=== PATIENT | female | born 1970 | race Caucasian/White ===

== ENCOUNTER → 2017-05-05 | Outpatient (CLI) | payer BC ==
--- NOTE | 2017-05-05 09:25 | MM ---
Reason for exam: follow-up at short interval from prior study. Last mammogram was performed 7 months ago. History: Family history of breast cancer in maternal aunt at age 50 and breast cancer in maternal grandmother. Benign US biopsy breast VAD LT of the left breast, October 10, 2016. Took hormonal contraceptives for 2 years beginning at age 19. Physical Findings: Nurse did not find any significant physical abnormalities on exam. MG 3D Diag Mammo W/Cad LT CC and MLO view(s) were taken of the left breast. Prior study comparison: October 10, 2016, left breast MG diagnostic mammo LT wo CAD. October 02, 2016, left breast MG 3d work up w/cad LT. There are scattered fibroglandular densities. No significant new findings when compared with previous films. These results were verbally communicated with the patient and result sheet given to the patient on 05/05/17. ASSESSMENT: Benign, BI-RAD 2 RECOMMENDATION: Return to routine screening mammogram schedule for both breasts. Back on schedule.
--- NOTE | 2017-05-05 09:26 | USB ---
Reason for exam: follow-up at short interval from prior study. History: Family history of breast cancer in maternal aunt at age 50 and breast cancer in maternal grandmother. Benign US biopsy breast VAD LT of the left breast, October 10, 2016. Took hormonal contraceptives for 2 years beginning at age 19. US Breast LT Left breast ultrasound includes all four quadrants, the retroareolar region and axilla. Finding demonstrates a 6 x 5 x 6mm irregular, solid, hypoechoic lesion with clip visible at 10 o'clock. These results were verbally communicated with the patient and result sheet given to the patient on 05/05/17. ASSESSMENT: Benign, BI-RAD 2 RECOMMENDATION: Return to routine screening mammogram schedule for both breasts. Back on schedule.
== END | disposition home or self-care (01) ==
LOC: RADMAMWWP 07:38
PROVIDERS: ATTEND Internal Medicine Infectious Disease
DX: N64.89 Other specified disorders of breast (principal); R21 Rash and other nonspecific skin eruption
CPT/HCPCS: 76641; G0206; G0279

== ENCOUNTER → 2017-12-11 | Outpatient (CLI) | payer BC ==
--- NOTE | 2017-12-11 11:34 | MM ---
Reason for exam: screening (asymptomatic). Last mammogram was performed 7 months ago. History: Family history of breast cancer in maternal aunt at age 50 and breast cancer in maternal grandmother. Benign US biopsy breast VAD LT of the left breast, October 10, 2016. Took hormonal contraceptives for 2 years beginning at age 19. Physical Findings: A clinical breast exam by your physician is recommended on an annual basis and results should be correlated with mammographic findings. MG 3D Screening Mammo W/Cad Bilateral CC and MLO view(s) were taken. Prior study comparison: May 05, 2017, left breast MG 3d diag mammo w/cad LT. October 10, 2016, left breast MG diagnostic mammo LT wo CAD. No suspicious abnormality. Left central inner ribbon shaped biopsy marker. No significant changes when compared with prior studies. ASSESSMENT: Negative, BI-RAD 1 RECOMMENDATION: Routine screening mammogram of both breasts in 1 year.
== END | disposition home or self-care (01) ==
LOC: RADMAMWWP 07:05
PROVIDERS: ATTEND Obstetrics & Gynecology
DX: Z12.31 Encounter for screening mammogram for malignant neoplasm of breast (principal); Z80.3 Family history of malignant neoplasm of breast
CPT/HCPCS: 77063; 77067

== ENCOUNTER → 2019-02-09 | Outpatient (CLI) | payer BC ==
--- NOTE | 2019-02-10 10:16 | MM ---
Reason for exam: screening (asymptomatic). Last mammogram was performed 1 year and 2 months ago. History: Family history of breast cancer in maternal aunt at age 50 and breast cancer in maternal grandmother. Implants in both breasts, December 2017. Benign US biopsy breast VAD LT of the left breast, October 10, 2016. Took hormonal contraceptives for 2 years beginning at age 19. Physical Findings: A clinical breast exam by your physician is recommended on an annual basis and results should be correlated with mammographic findings. MG 3D Screen Mammo Imp/Cad Bilateral CC, MLO, and ID view(s) were taken. Prior study comparison: December 11, 2017, bilateral MG 3d screening mammo w/cad. May 05, 2017, left breast MG 3d diag mammo w/cad LT. The breast tissue is heterogeneously dense. This may lower the sensitivity of mammography. No suspicious calcifications are seen. Previous mammotome biopsy in the left breast. Bilateral implants are intact. No significant changes when compared with prior studies. ASSESSMENT: Benign, BI-RAD 2 RECOMMENDATION: Routine screening mammogram of both breasts in 1 year.
== END | disposition home or self-care (01) ==
LOC: RADMAMWWP 07:01
PROVIDERS: ATTEND Obstetrics & Gynecology
DX: Z12.31 Encounter for screening mammogram for malignant neoplasm of breast (principal); Z98.82 Breast implant status
CPT/HCPCS: 77063; 77067

== ENCOUNTER → 2020-06-01 | Outpatient (CLI) | payer BC ==
--- NOTE | 2020-06-04 12:00 | MM ---
Reason for exam: screening (asymptomatic). Last mammogram was performed 1 year and 4 months ago. History: Family history of breast cancer in maternal aunt at age 50 and breast cancer in maternal grandmother. Implants in both breasts, December 2017. Benign US biopsy breast VAD LT of the left breast, October 10, 2016. Took hormonal contraceptives for 2 years beginning at age 19. Physical Findings: A clinical breast exam by your physician is recommended on an annual basis and results should be correlated with mammographic findings. MG 3D Screen Mammo Imp/Cad Bilateral CC, MLO, and ID view(s) were taken. Prior study comparison: February 09, 2019, bilateral MG 3d screen mammo imp/cad. December 11, 2017, bilateral MG 3d screening mammo w/cad. September 26, 2016, bilateral MG 3d screening mammo w/cad. There are scattered fibroglandular densities. Previous mammotome biopsy in the left breast. Retropectoral silicone implants. Medial asymmetric density right CC view does not clearly persist on 3D images. Precautionary 6 month follow up recommended. ASSESSMENT: Probably benign, BI-RAD 3 RECOMMENDATION: Follow-up diagnostic mammogram of the right breast in 6 months.
== END | disposition home or self-care (01) ==
LOC: RADMAMWWP 14:37
PROVIDERS: ATTEND Obstetrics & Gynecology
DX: Z12.31 Encounter for screening mammogram for malignant neoplasm of breast (principal)
CPT/HCPCS: 77063; 77067

== ENCOUNTER 2020-08-03 09:45 | Day surgery (SDC) | payer BC ==
[2020-07-25 15:08] VITALS: BMI 31.8
[~2020-08-03 09:45] MED LIST: LACTATED RINGERS 1,000 ML IV SCH
[2020-08-03 10:11] VITALS: RESP 16; TEMP 97.1
[2020-08-03] MEDS ORDERED: MIDAZOLAM 2 MG/2 ML VIAL IV ONE (11:29)
[2020-08-03] MEDS ORDERED: MIDAZOLAM 2 MG/2 ML VIAL ONE (11:45)
[2020-08-03] MEDS ORDERED: PROPOFOL 10 MG/ML 20 ML VIAL IV ONE (11:45)
--- NOTE | 2020-08-03 12:05 | P.PCN ---
Date of Procedure: 08/03/20 Procedure(s) Performed: BRIEF HISTORY: Patient is a 50-year-old pleasant white female scheduled for an elective colonoscopy as a part of evaluation of chronic diarrhea for the last several months duration. PROCEDURE PERFORMED: Colonoscopy. PREOPERATIVE DIAGNOSIS: Chronic diarrhea. IV sedation per Anesthesia. PROCEDURE: After informed consent was obtained, the patient, was brought into the endoscopy unit. IV sedation was administered by Anesthesia under continuous monitoring. Digital rectal examination was normal. Initially the Olympus CF-160 flexible video colonoscope was then inserted in the rectum, gradually advanced into the cecum without any difficulty. Careful examination was performed as the scope was gradually being withdrawn. Ileocecal valve and the appendiceal orifice were visualized and appeared normal. Prep was excellent. Mucosa of the cecum, ascending colon, transverse colon, descending colon, sigmoid colon, and rectum appeared normal. Retroflexion was performed in the rectum and no lesions were seen. The patient tolerated the procedure well. IMPRESSION: Normal-appearing colon from rectum to cecum with no evidence of colitis or colorectal. RECOMMENDATIONS: Findings of this examination were discussed with the patient as well as a family. She was advised to have a repeat screening colonoscopy in 10 years..
[2020-08-03 12:29] VITALS: BP 133/83; PULSE 82
== END 2020-08-03 12:43 | disposition home or self-care (01) ==
LOC: ORWHC2ENDO 09:45
PROVIDERS: ATTEND Internal Medicine Gastroenterology
DX: K52.9 Noninfective gastroenteritis and colitis, unspecified (principal); Z90.710 Acquired absence of both cervix and uterus; Z90.49 Acquired absence of other specified parts of digestive tract; Z98.890 Other specified postprocedural states; Z88.2 Allergy status to sulfonamides
CPT/HCPCS: 45378; J2250; J2704

== ENCOUNTER → 2020-12-25 | Outpatient (CLI) | payer BC ==
--- NOTE | 2020-12-25 09:19 | MM ---
Reason for exam: follow-up at short interval from prior study. Last mammogram was performed 7 months ago. History: Family history of breast cancer in maternal aunt at age 50 and breast cancer in maternal grandmother. Implants in both breasts, December 2017. Benign US biopsy breast VAD LT of the left breast, October 10, 2016. Took hormonal contraceptives for 2 years beginning at age 19. Physical Findings: Nurse did not find any significant physical abnormalities on exam. MG 3D Work Up W/Cad W/Imp RT Spot compression CC, spot compression MLO, and ID view(s) were taken of the right breast. Prior study comparison: June 01, 2020, bilateral MG 3d screen mammo imp/cad. February 09, 2019, bilateral MG 3d screen mammo imp/cad. The breast tissue is heterogeneously dense. This may lower the sensitivity of mammography. There is no new dominant lesion. Asymmetric breast tissue is stable. Right subpectoral implant. These results were verbally communicated with the patient and result sheet given to the patient on 12/25/20. ASSESSMENT: Benign, BI-RAD 2 RECOMMENDATION: Return to routine screening mammogram schedule for both breasts. Back on schedule for May 2021.
== END ==
LOC: RADMAMWWP 07:41
PROVIDERS: ATTEND Obstetrics & Gynecology
DX: R92.8 Other abnormal and inconclusive findings on diagnostic imaging of breast (principal)
CPT/HCPCS: 77061; 77065

== ENCOUNTER → 2021-08-23 | Outpatient (CLI) | payer BC ==
--- NOTE | 2021-08-27 11:10 | MM ---
Reason for exam: screening (asymptomatic). Last mammogram was performed 8 months ago. History: Family history of breast cancer in maternal aunt at age 50 and breast cancer in maternal grandmother. Implants in both breasts, December 2017. Benign US biopsy breast VAD LT of the left breast, October 10, 2016. Took hormonal contraceptives for 2 years beginning at age 19. Physical Findings: A clinical breast exam by your physician is recommended on an annual basis and results should be correlated with mammographic findings. MG 3D Screen Mammo Imp/Cad Bilateral CC and MLO view(s) were taken. Prior study comparison: December 25, 2020, right breast MG 3d work up w/cad w/imp RT. There are scattered fibroglandular densities. Previous mammotome biopsy in the left breast. Bilateral breast prothesis. No significant changes when compared with prior studies. ASSESSMENT: Benign, BI-RAD 2 RECOMMENDATION: Routine screening mammogram of both breasts in 1 year.
== END | disposition home or self-care (01) ==
LOC: RADMAMWWP 07:25
PROVIDERS: ATTEND Obstetrics & Gynecology
DX: Z12.31 Encounter for screening mammogram for malignant neoplasm of breast (principal); Z80.3 Family history of malignant neoplasm of breast
CPT/HCPCS: 77063; 77067

== ENCOUNTER 2021-12-03 18:12 | Emergency (ER) | payer BC ==
[2021-12-03 19:39] VITALS: BP 146/82; PULSE 74; RESP 18; TEMP 99.2
[2021-12-03] MEDS ORDERED: APIXABAN 5 MG TAB PO STA (19:56)
--- NOTE | 2021-12-03 20:07 | ED ---
General Adult HPI - General Chief complaint: Extremity Problem,Nontraumatic Stated complaint: +DVT, sent from [facility] Time Seen by Provider: 12/03/21 19:35 Source: patient, family, RN notes reviewed, old records reviewed Mode of arrival: wheelchair Limitations: no limitations - History of Present Illness Initial comments: This is a 51-year-old female who had knee surgery on the right knee last Thursday. Patient stated she started her some swelling in the right calf and some tenderness in the right calf area. Patient decided to call her doctor in the center and to get an ultrasound showed a DVT. Patient denies any difficulty breathing or chest pain. Patient denies any palpitations. Patient denies any recent fever chills or cough. Patient denies any previous history of clots. - Related Data Previous Rx's Medication Instructions Recorded Apixaban [Eliquis Starter Pack 5 - 10 mg PO DIRECTED 30 Days 12/03/21 (for VTE)] #1 each Allergies Allergy/AdvReac Type Severity Reaction Status Date / Time Sulfa (Sulfonamide Allergy eye cream Verified 12/03/21 19:39 Antibiotics) caused red streak on face suture AdvReac caused Verified 12/03/21 19:39 infection and wound dehiscence Review of Systems ROS Statement: Those systems with pertinent positive or pertinent negative responses have been documented in the HPI. ROS Other: All systems not noted in ROS Statement are negative. Past Medical History Past Medical History: No Reported History Additional Past Medical History / Comment(s): no problems-just having screening done History of Any Multi-Drug Resistant Organisms: None Reported Past Surgical History: Appendectomy, Breast Surgery, Cholecystectomy, Hysterectomy, Orthopedic Surgery, Tonsillectomy Additional Past Surgical History / Comment(s): bilat breast implants Past Anesthesia/Blood Transfusion Reactions: Postoperative Nausea & Vomiting (PONV) Past Psychological History: No Psychological Hx Reported Smoking Status: Former smoker Past Alcohol Use History: Occasional Past Drug Use History: None Reported - Past Family History Mother Family Medical History: No Reported History General Exam - General Exam Comments Initial Comments: GENERAL: Patient is well-developed and well-nourished. Patient is nontoxic and well- hydrated and is in no acute distress. ENT: Neck is soft and supple. No significant lymphadenopathy is noted. Oropharynx is clear. Moist mucous membranes. Neck has full range of motion without eliciting any pain. EYES: The sclera were anicteric and conjunctiva were pink and moist. Extraocular movements were intact and pupils were equal round and reactive to light. Eyelids were unremarkable. PULMONARY: Unlabored respirations. Good breath sounds bilaterally. No audible rales rhonchi or wheezing was noted. CARDIOVASCULAR: There is a regular rate and rhythm without any murmurs gallops or rubs. SKIN: Skin is clear with no lesions or rashes and otherwise unremarkable. NEUROLOGIC: Patient is alert and oriented x3. Cranial nerves II through XII are grossly intact. Motor and sensory are also intact. Normal speech, volume and content. Symmetrical smile. MUSCULOSKELETAL: Normal extremities with adequate strength and full range of motion. Right calf is swollen and tender to palpation. The incision sites look clean no redness no signs of infection LYMPHATICS: No significant lymphadenopathy is noted PSYCHIATRIC: Patient is mildly anxious Limitations: no limitations Course Vital Signs 12/03/21 19:36 Temperature 99.2 F Pulse Rate 74 Respiratory 18 Rate Blood Pressure 146/82 O2 Sat by Pulse 99 Oximetry Medical Decision Making - Medical Decision Making I reviewed the ultrasound results patient does have a DVT of the right calf. Patient received eliquis in the emergency department. EKG showed normal sinus rhythm at 76 bpm [place] interval is on a 46 QRS is 72 QT interval 382 QTC is 429. Patient's EKG shows no ST segment elevation or depression. Disposition Clinical Impression: Deep vein thrombosis (DVT) of lower extremity Disposition: HOME SELF-CARE Condition: Good Instructions (If sedation given, give patient instructions): Deep Vein Thrombosis (ED) Prescriptions: Apixaban [Eliquis Starter Pack (for VTE)] 5 - 10 mg PO DIRECTED 30 Days #1 each Is patient prescribed a controlled substance at d/c from ED?: No Referrals: Randell Tatum MD [Primary Care Provider] - 1-2 days Time of Disposition: 20:06
== END 2021-12-03 21:00 | disposition home or self-care (01) ==
LOC: EC 18:12
DX: I82.4Z1 Acute embolism and thrombosis of unspecified deep veins of right distal lower extremity (principal); Z87.891 Personal history of nicotine dependence
CPT/HCPCS: 93005; 99283

== ENCOUNTER → 2022-02-13 | Outpatient (CLI) | payer BC ==
--- NOTE | 2022-02-13 19:25 | US ---
EXAMINATION TYPE: US venous doppler duplex LE RT DATE OF EXAM: 02/13/2022 3:23 PM COMPARISON: 12/03/2021 CLINICAL HISTORY: 51-year-old female I82.403 VENOUS THROMBOSIS. Torn meniscus. SIDE PERFORMED: Right TECHNIQUE: The lower extremity deep venous system is examined utilizing real time linear array sonog mary with graded compression, doppler sonography and color-flow sonography. FINDINGS: VESSELS IMAGED: Common Femoral Vein Deep Femoral Vein Greater Saphenous Vein * Femoral Vein Popliteal Vein Small Saphenous Vein * Proximal Calf Veins (* superficial vessels) Right Leg: Negative for DVT. Paired vessels appears to have color on today's exam. IMPRESSION: No evidence for DVT within the right lower extremity imaged from the groin into the upper calf. The p aired veins in the upper calf previously seen to have some clot appears to have cleared.
[2022-02-13 22:53] LABS: Basophils # (A) 0.09 X 10*3/uL (0.00-0.10); Basophils % (A) 1.4 %; Eosinophils # (A) 0.17 X 10*3/uL (0.04-0.35); Eosinophils % (A) 2.6 %; HCT 44.8 % (37.2-46.3); HGB 14.5 g/dL (12.0-15.0); Immature Grans, Automated 0.5 %; Lymphocytes # (A) 2.47 X 10*3/uL (0.90-5.00); Lymphocytes % (A) 38.2 %; MCH 30.5 pg (27.0-32.0); MCHC 32.4 g/dL (32.0-37.0); MCV 94.1 fL (80.0-97.0); Mean Platelet Volume 11.4 fL (9.5-12.2); Monocytes # (A) 0.62 X 10*3/uL (0.20-1.00); Monocytes % (A) 9.6 %; NRBC Per 100 WBC 0 /100 WBCS (0.0-0.0); Neutrophils # (A) 3.09 X 10*3/uL (1.80-7.70); Neutrophils % (A) 47.7 %; Platelet Count 275 X 10*3/uL (140-440); RBC 4.76 X 10*6/uL (4.10-5.20); RDW 11.8 % (11.5-14.5); WBC 6.47 X 10*3/uL (4.50-10.00)
[2022-02-13 23:02] LABS: Follicle Stimulating Hormone 49.6 mIU/mL
[2022-02-14 02:44] LABS: Anti-DNA, DS unit <1.0 IU/mL; DNA Double-Stranded NEGATIVE (NEGATIVE)
[2022-02-14 07:16] LABS: C-Peptide 9.43 ng/mL (0.81-3.85)
[2022-02-14 10:52] LABS: Anti-Thrombin III Activity 100 % (79-109)
[2022-02-14 10:54] LABS: Protein C (Activity) 126 % (71-138)
[2022-02-14 11:09] LABS: APTT 50 Sec(s) (<43); APTT 1:1 Mix 43 Sec(s) (<43); DRVVT 1:1 Mix 46 Sec(s) (<44); DRVVT Confirmation Negative (Negative); Dilute Russell Viper Venom 57 Sec(s) (<44)
[2022-02-14 12:01] LABS: Anti-Thrombin III Antigen 103 % (80 - 120); Protein S Antigen 110 % (50 - 140)
[2022-02-14 14:02] LABS: Estrogens Total 65 pg/mL
== END | disposition home or self-care (01) ==
LOC: RADUSWWP 14:27
PROVIDERS: ATTEND Family Medicine
DX: I10 Essential (primary) hypertension (principal); B89 Unspecified parasitic disease; Z79.899 Other long term (current) drug therapy
CPT/HCPCS: 82672; 83001; 84144; 84681; 85025; 85300; 85301; 85303; 85305; 85613; 85730; 86038; 86225

== ENCOUNTER → 2022-09-23 | Outpatient (CLI) | payer BC ==
--- NOTE | 2022-09-24 07:29 | MM ---
Reason for Exam: Screening (asymptomatic). Last mammogram was performed 1 year(s) and 1 month(s) ago. Patient History: Menarche at age 16. First Full-Term at age 21. Hysterectomy at age 31. Postmenopausal. Hormonal Contraceptives for 2 years from age 19 until age 21. 10/10/2016, Benign Core Biopsy on the left side. 12/2017, Bilateral Implants. Maternal grandmother had breast cancer. Maternal aunt had breast cancer, age 50. Risk Values: [place] 5 year model risk: 0.7%. NCI Lifetime model risk: 7.0%. Prior Study Comparison: 06/01/2020 Bilateral Screening Mammogram, [facility]. 12/25/2020 Right Diagnostic Mammogram, [facility]. 08/23/2021 Bilateral Screening Mammogram, [facility]. Tissue Density: There are scattered fibroglandular densities. Findings: Analyzed By CAD. Subpectoral bilateral breast implants are redemonstrated. Mammotome biopsy clip in the left breast again seen medial aspect. Benign-appearing left axillary lymph nodes are redemonstrated. There is no suspicious new group of microcalcifications or new suspicious mass in either breast. Overall Assessment: Benign, BI-RAD 2 Management: Screening Mammogram of both breasts in 1 year. A clinical breast exam by your physician is recommended on an annual basis and results should be correlated with mammographic findings. Electronically signed and approved by: Enio Bryant M.D.
== END | disposition home or self-care (01) ==
LOC: RADMAMWWP 07:04
PROVIDERS: ATTEND Obstetrics & Gynecology
DX: Z12.31 Encounter for screening mammogram for malignant neoplasm of breast (principal); Z78.0 Asymptomatic menopausal state; Z80.3 Family history of malignant neoplasm of breast
CPT/HCPCS: 77063; 77067

== ENCOUNTER → 2022-10-20 | Outpatient (CLI) | payer BC ==
--- NOTE | 2022-10-20 13:12 | XR ---
EXAMINATION TYPE: XR chest 2V DATE OF EXAM: 10/20/2022 COMPARISON: NONE TECHNIQUE: PA and lateral views submitted. HISTORY: Pain FINDINGS: The lungs are clear and there is no pneumothorax, pleural effusion, or focal pneumonia. Heart size normal. No failure. Limited inspiration. Hypertrophic changes spine. Surgical clips in the abdomen. IMPRESSION: 1. No acute process.
--- NOTE | 2022-10-20 13:14 | XR ---
EXAMINATION TYPE: XR ribs LT DATE OF EXAM: 10/20/2022 COMPARISON: NONE HISTORY: Pain TECHNIQUE: 4 views submitted FINDINGS: AC joint arthropathy. Rib cage appears intact. No acute displaced rib fracture. IMPRESSION: No acute displaced rib fracture.
== END | disposition home or self-care (01) ==
LOC: RADXRWHC 12:37
PROVIDERS: ATTEND Family Medicine
DX: R07.9 Chest pain, unspecified (principal)
CPT/HCPCS: 71046

== ENCOUNTER → 2022-10-29 | Outpatient (CLI) | payer BC ==
[2022-10-29 10:46] LABS: African American GFR (CKD) >90 (>60 ml/min/1.73 sqM); Blood Urea Nitrogen 14 mg/dL (7-17); Non-African American GFR(CKD) 87 (>60 ml/min/1.73 sqM)
--- NOTE | 2022-10-29 11:40 | CT ---
EXAMINATION TYPE: CT angio chest DATE OF EXAM: 10/29/2022 COMPARISON: NONE HISTORY: left sided chest pain CT DLP: 592 mGycm. Automated Exposure Control for Dose Reduction was Utilized. CONTRAST: CTA scan of the thorax is performed with IV Contrast, patient injected with 68cc mL of Isovue 370, pu lmonary embolism protocol. MIP Images are created on CT scanner and reviewed. FINDINGS: LUNGS: There is 3 mm peripheral right upper lobe nodule axial image 27. No significant greater than 5 mm pulmonary nodules. There is no pleural effusion or pneumothorax seen. The tracheobronchial tree is patent. MEDIASTINUM: There is satisfactory enhancement of the pulmonary artery and its branches, there is no CT evidence for pulmonary embolism. There are no greater than 1 cm hilar or mediastinal lymph nodes. No cardiomegaly or pericardial effusion is seen. Bovine type aortic arch is seen which is normal v ariant. Satisfactory enhancement of the thoracic aorta without aneurysm or dissection. OTHER: Bilateral subpectoral breast implants. Cholecystectomy clips are redemonstrated. IMPRESSION: No CT evidence for acute pulmonary embolism. No suspicious acute pulmonary process.
== END | disposition home or self-care (01) ==
LOC: RADCTMAIN 10:04
PROVIDERS: ATTEND Family Medicine
DX: I26.99 Other pulmonary embolism without acute cor pulmonale (principal)
CPT/HCPCS: 82565; 84520; 71275; 36415; Q9967

== ENCOUNTER → 2022-11-03 | Outpatient (CLI) | payer BC ==
--- NOTE | 2022-11-03 11:38 | US ---
EXAMINATION TYPE: US venous doppler duplex LE BI DATE OF EXAM: 11/03/2022 11:25 AM COMPARISON: 02/13/2022 CLINICAL HISTORY: I82.401 DVT RT LEG. Patient states having a right DVT previously posterior knee and doctor just wants to follow up. No redness or swelling. Not on blood thinners. SIDE PERFORMED: Bilateral TECHNIQUE: The lower extremity deep venous system is examined utilizing real time linear array sonog mary with graded compression, doppler sonography and color-flow sonography. VESSELS IMAGED: Common Femoral Vein Deep Femoral Vein Greater Saphenous Vein * Femoral Vein Popliteal Vein Small Saphenous Vein * Proximal Calf Veins (* superficial vessels) Right Leg: Negative for DVT Left Leg: Negative for DVT IMPRESSION: Grayscale, color doppler, spectral doppler imaging performed of the deep veins of the lo wer extremities. There is normal flow, compressibility, vascular waveforms.
== END | disposition home or self-care (01) ==
LOC: RADUSWWP 10:55
PROVIDERS: ATTEND Family Medicine
DX: I82.401 Acute embolism and thrombosis of unspecified deep veins of right lower extremity (principal)
CPT/HCPCS: 93970

== ENCOUNTER → 2023-02-20 | Outpatient (CLI) | payer BC ==
--- NOTE | 2023-02-20 11:00 | CT ---
EXAMINATION TYPE: CT abdomen pelvis w con DATE OF EXAM: 02/20/2023 HISTORY: Left upper quadrant pain for [address] DLP: 1645.6mGycm Automated Exposure Control for Dose Reduction was Utilized. CONTRAST: CT scan of the abdomen and pelvis is performed with oral and with IV Contrast, patient injected with 100 mL of Isovue 300. COMPARISON: None. FINDINGS: LUNG BASES: Partial visualization of bilateral breast implants.. LIVER/GB: Cholecystectomy clips are present. Liver is diffusely low dense consistent with fatty infil tration. PANCREAS: No significant abnormality is seen. SPLEEN: No significant abnormality is seen. ADRENALS: No significant abnormality is seen. KIDNEYS: Symmetric cortical medullary uptake and excretion without hydronephrosis seen bilaterally. BOWEL: Oral contrast reaches level of the rectum. No suspicious small or large bowel dilatation. Appe ndix is surgically absent. A few distal colonic diverticula with mild wall thickening in the sigmoid colon. No significant surrounding fluid or fat stranding. UTERUS/ADNEXA: Uterus is surgically absent. Remnant left ovary suspected axial image 80. Right ovary was not well seen. Scattered pelvic phleboliths. LYMPH NODES: No greater than 1cm abdominal or pelvic lymph nodes are appreciated. Some haziness in th e mesentery with prominent but subcentimeter lymph nodes. OSSEOUS STRUCTURES: Multilevel facet arthropathy in the lower lumbar spine. OTHER: No significant additional abnormality is seen. 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 Correlate clinical ly. No acute findings otherwise present.
== END | disposition home or self-care (01) ==
LOC: RADCTMAIN 08:20
PROVIDERS: ATTEND Family Medicine
DX: R10.12 Left upper quadrant pain (principal)
CPT/HCPCS: 74177

== ENCOUNTER → 2023-04-07 | Outpatient (CLI) | payer BC ==
--- NOTE | 2023-04-07 09:14 | CT ---
EXAMINATION TYPE: CT abdomen pelvis w con CT DLP: 1845 mGycm, Automated exposure control for dose reduction was used. DATE OF EXAM: 04/07/2023 8:24 AM COMPARISON: CT abdomen pelvis most recent from 02/20/2023 CLINICAL INDICATION:Female, 52 years old with history of R10.84 GENERALIZED ABDOMINAL PAIN; left side peritoneum infection TECHNIQUE: Axial CT of the abdomen and pelvis. Sagittal and coronal reformats were created on a [employer] workstation. Contrast used:100 mL of Isovue 300 with IV Contrast, Oral contrast used: with Oral Contrast FINDINGS: LOWER CHEST: Bilateral breast implants which appear intact. LIVER: Diffusely hypoattenuating parenchyma. GALLBLADDER AND BILE DUCTS: The gallbladder is surgically absent. PANCREAS: Unremarkable. SPLEEN: Unremarkable. ADRENAL GLANDS: Unremarkable. KIDNEYS AND URETERS: No evidence of hydronephrosis or renal calculus. The ureters are unremarkable. PELVIS BLADDER: Unremarkable REPRODUCTIVE: Unremarkable. ABDOMEN & PELVIS STOMACH AND BOWEL: . Scattered diverticula are noted throughout the colon. No evidence of bowel obstr uction. The appendix is not definitively visualized. It may be surgically absent. PERITONEUM/RETROPERITONEUM: No evidence of pneumoperitoneum or free fluid. Mild juan mesentery as se en on prior imaging. It is not significantly changed. A few prominent lymph nodes are seen within the resting mesentery. VASCULATURE: No evidence of aortic aneurysm. Few scattered pelvic phleboliths are noted. MUSCULOSKELETAL: No acute osseous abnormalities. Mild disc degeneration changes are present throughou t the thoracolumbar spine. LYMPH NODES: No gross evidence for lymphadenopathy. SOFT TISSUE/ABDOMINAL WALL: Fat-containing buccal hernia. IMPRESSION: 1. 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 2. No additional evidence for acute abdominal process to explain the patient's left-sided abdominal pain. 3. Colonic diverticula without evidence for acute inflammation. No evidence of obstructive uropathy or renal calculus. 4. Hepatic steatosis.
== END | disposition home or self-care (01) ==
LOC: RADCTMAIN 06:18
PROVIDERS: ATTEND Family Medicine
DX: K76.0 Fatty (change of) liver, not elsewhere classified (principal); K57.30 Diverticulosis of large intestine without perforation or abscess without bleeding
CPT/HCPCS: 74177; Q9967

== ENCOUNTER → 2023-06-18 | Outpatient (CLI) | payer BC ==
--- NOTE | 2023-06-18 16:00 | US ---
EXAMINATION TYPE: US venous doppler duplex LE LT DATE OF EXAM: 06/18/2023 3:46 PM COMPARISON: NONE CLINICAL INDICATION: Female, 53 years old with history of PHLEBITIS AND THROMBOPHLEBITIS OF UNSPECIFI ED SITE I80.9; tightness and pain left posterior knee x 2 days, fall yesterday SIDE PERFORMED: Left TECHNIQUE: The lower extremity deep venous system is examined utilizing real time linear array sonog mary with graded compression, doppler sonography and color-flow sonography. VESSELS IMAGED: Common Femoral Vein Deep Femoral Vein Greater Saphenous Vein * Femoral Vein Popliteal Vein Small Saphenous Vein * Proximal Calf Veins (* superficial vessels) Grayscale, color doppler, spectral doppler imaging performed of the deep veins of the left lower extr emity. There is normal flow, compressibility, vascular waveforms. Left Leg: Negative for DVT IMPRESSION: No ultrasound evidence for deep venous thrombosis of the left lower extremity.
== END | disposition home or self-care (01) ==
LOC: RADUSWWP 15:00
PROVIDERS: ATTEND Orthopaedic Surgery
DX: I80.9 Phlebitis and thrombophlebitis of unspecified site (principal); M62.552 Muscle wasting and atrophy, not elsewhere classified, left thigh

== ENCOUNTER → 2023-09-24 | Outpatient (CLI) | payer BC ==
--- NOTE | 2023-09-24 08:17 | MM ---
Reason for Exam: Hx of breast augmentation, asymptomatic. Last screening mammogram was performed 12 month(s) ago. Patient History: Menarche at age 16. First Full-Term at age 21. Hysterectomy at age 31. Postmenopausal. Hormonal Contraceptives for 2 years from age 19 until age 21. 10/10/2016, Benign Core Biopsy on the left side. 12/2017, Bilateral Implants. Maternal grandmother had breast cancer. Maternal aunt had breast cancer, age 50. Risk Values: Carmelita 5 year model risk: 0.8%. NCI Lifetime model risk: 6.9%. Prior Study Comparison: 12/25/2020 Right Diagnostic Mammogram, [facility]. 08/23/2021 Bilateral Screening Mammogram, [facility]. 09/23/2022 Bilateral MG 3D screen mammo imp/cad., [facility]. Tissue Density: There are scattered fibroglandular densities. Findings: Analyzed By CAD. Left breast biopsy clip. Bilateral breast implants appear intact. There is no suspicious group of microcalcifications or new suspicious mass. Overall Assessment: Benign, BI-RAD 2 Management: Screening Mammogram of both breasts in [address] [facility] will attempt to contact patient to return for supplemental views and ultrasound if indicated. Patient should continue monthly self-breast exams. A clinical breast exam by your physician is recommended on an annual basis. This exam should not preclude additional follow-up of suspicious palpable abnormalities. Note on Carmelita scores and lifetime risk: 1. A Carmelita score greater than 3% is considered moderate risk. If this is the case, consider specialist referral to assess eligibility for a risk reducing agent. 2. If overall lifetime risk for the development of breast cancer is 20% or higher, the patient may qualify for future screening with alternating mammogram and breast MRI. Electronically signed and approved by: Carlo Cast DO
== END | disposition home or self-care (01) ==
LOC: RADMAMWWP 06:54
PROVIDERS: ATTEND Obstetrics & Gynecology
DX: Z12.31 Encounter for screening mammogram for malignant neoplasm of breast (principal); Z78.0 Asymptomatic menopausal state; Z80.3 Family history of malignant neoplasm of breast; Z98.82 Breast implant status
CPT/HCPCS: 77063; 77067

== ENCOUNTER → 2024-02-16 | Outpatient (CLI) | payer BC ==
[2024-02-16 16:30] LABS: Hepatitis A Antibody IgM Nonreactive (Nonreactive); Hepatitis B Surface AB- Quant 3.5 mIU/mL; Hepatitis B Surface Antigen Nonreactive (Nonreactive); Hepatitis C IgG Antibody Nonreactive (Nonreactive)
[2024-02-16 17:04] LABS: Alpha 1 Antitrypsin 79.3 mg/dL (99.0-242.0); Ceruloplasmin 25.9 mg/dL (20.0-60.0)
== END | disposition home or self-care (01) ==
LOC: LABWHC1 10:53
PROVIDERS: ATTEND Internal Medicine Gastroenterology
DX: R79.89 Other specified abnormal findings of blood chemistry (principal)
CPT/HCPCS: 36415; 82103; 82390; 83516; 84443; 86038; 86706; 86709; 86803; 87340

== ENCOUNTER → 2024-02-16 | Day surgery (SDC) | payer BC ==
[~2024-02-16] MED LIST changes: -LACTATED RINGERS 1,000 ML IV SCH; +LIDOCAINE 1% INJ 10MG/ML (20 ML MDV) ONE; +PROPOFOL 10 MG/ML 20 ML VIAL IV ONE
[2024-02-16] MEDS: LACTATED RINGERS 1,000 ML IV SCH (11:57)
[2024-02-16 12:08] VITALS: TEMP 98.4
--- NOTE | 2024-02-16 12:47 | P.GSHP ---
History of Present Illness H&P Date: 02/16/24 Chief Complaint: Abdominal pain 53-year-old female seen in the outpatient setting last year. Patient with upper abdominal pain and cramps. Patient had a CAT scan showing some mesenteric inflammation proximally in the left upper quadrant. She was seen by GI at [facility]. As part of the workup they wanted her to have upper endoscopy performed. Patient has had some weight loss recently approximately 20 pounds. Her symptoms have improved somewhat. Past Medical History Past Medical History: Deep Vein Thrombosis (DVT) Additional Past Medical History / Comment(s): blood clot developed behind right knee after knee arthroscopy-took eliquis for 3 months, mesenteric panniculitis, upper left abd. pain @times History of Any Multi-Drug Resistant Organisms: None Reported Past Surgical History: Appendectomy, Breast Surgery, Cholecystectomy, Hysterectomy, Orthopedic Surgery, Tonsillectomy Additional Past Surgical History / Comment(s): bilat breast implants, arthroscopy right knee Past Anesthesia/Blood Transfusion Reactions: Motion Sickness, Postoperative Nausea & Vomiting (PONV) Additional Past Anesthesia/Blood Transfusion Reaction / Comment(s): wakes up crying usually Smoking Status: Former smoker - Past Family History Mother Family Medical History: No Reported History Medications and Allergies Home Medications Medication Instructions Recorded Confirmed Type Cetirizine HCl [Zyrtec] 10 mg PO HS 02/12/24 02/16/24 History Tirzepatide [Zepbound] 7.5 mg SQ MO 02/12/24 02/16/24 History Allergies Allergy/AdvReac Type Severity Reaction Status Date / Time Sulfa (Sulfonamide Allergy eye cream Verified 02/16/24 11:52 Antibiotics) caused red streak on face suture AdvReac caused Verified 02/16/24 11:52 infection and wound dehiscence Surgical - Exam Vital Signs Temp Pulse Resp BP Pulse Ox 98.4 F 91 18 133/67 98 02/16/24 11:59 02/16/24 11:59 02/16/24 11:59 02/16/24 11:59 02/16/24 11:59 Physical exam: General: Well-developed, well-nourished HEENT: Normocephalic, sclerae nonicteric Abdomen: Nontender, nondistended Extremities: No edema Neuro: Alert and oriented Assessment and Plan (1) Abdominal pain Narrative/Plan: Will proceed with upper endoscopy at this time Current Visit: Yes Status: Acute Code(s): R10.9 - UNSPECIFIED ABDOMINAL PAIN SNOMED Code(s): 27869171
--- NOTE | 2024-02-16 12:55 | P.PCN ---
Date of Procedure: 02/16/24 Procedure(s) Performed: Preoperative Dx: Abdominal pain Postoperative Dx: Mild gastritis, small hiatal hernia Procedure: EGD with Bx Anesthesia: Sedation Endoscopist: Dr. Suero Specimens: Duodenum, antrum Endoscopic Procedure: The patient was on the endoscopy table in the left decubitus position. The Olympus gastroscope was inserted into the oropharynx and passed under direct visualization to the region of the third portion of the duodenum. From that point the scope was slowly withdrawn inspecting all surfaces carefully. There were no neoplastic inflammatory or polypoid lesions throughout the duodenum. Biopsies of the duodenum took place given the patient's recent history of possible mesenteritis. The pylorus was widely patent. The stomach was carefully inspected. There was mild gastritis present. A biopsy of the antrum took place to rule out H. pylori. Retroflexion revealed a tiny hiatal hernia. The esophagus was then carefully examined. There were no neoplastic inflammatory or polypoid lesions throughout the visualized esophagus. The patient was then taken to the recovery room in stable condition per anesthesia guidelines. Recommendations: Await biopsy results. Follow-up with GI at [facility].
[2024-02-16 13:40] VITALS: BP 132/86; PULSE 84; RESP 16
== END ==
LOC: ORWHC2ENDO 11:20
PROVIDERS: ATTEND Surgery
DX: K29.50 Unspecified chronic gastritis without bleeding (principal); K44.9 Diaphragmatic hernia without obstruction or gangrene; D72.820 Lymphocytosis (symptomatic); Z86.718 Personal history of other venous thrombosis and embolism; Z87.891 Personal history of nicotine dependence; Z88.1 Allergy status to other antibiotic agents; Z88.2 Allergy status to sulfonamides; Z90.49 Acquired absence of other specified parts of digestive tract; Z90.710 Acquired absence of both cervix and uterus; Z79.899 Other long term (current) drug therapy
CPT/HCPCS: 88305; 43239; J2001; J2704

== ENCOUNTER → 2024-03-23 | Outpatient (CLI) | payer BC | END | disposition home or self-care (01) | LOC: LABWHC1 16:18 | PROVIDERS: ATTEND Internal Medicine Gastroenterology | DX: R79.89 Other specified abnormal findings of blood chemistry (principal) | CPT/HCPCS: 36415 ==

== ENCOUNTER → 2024-04-18 | Outpatient (CLI) | payer BC | END | disposition home or self-care (01) | LOC: LABWHC1 09:55 | PROVIDERS: ATTEND Internal Medicine Gastroenterology | DX: R79.89 Other specified abnormal findings of blood chemistry (principal) | CPT/HCPCS: 36415 ==

== ENCOUNTER → 2024-08-02 | Outpatient (CLI) | payer BC | LOC: CPPFTMAIN 12:46 | PROVIDERS: ATTEND Internal Medicine | DX: E88.01 Alpha-1-antitrypsin deficiency | CPT/HCPCS: 94060; 94726; 94729 ==

== ENCOUNTER → 2024-09-26 | Outpatient (CLI) | payer BC ==
--- NOTE | 2024-09-30 13:04 | MM ---
Reason for Exam: Screening (asymptomatic). Last screening mammogram was performed 12 month(s) ago. Patient History: Menarche at age 16. First Full-Term at age 21. Hysterectomy at age 31. Postmenopausal. Hormonal Contraceptives for 2 years from age 19 until age 21. 10/10/2016, Benign Core Biopsy on the left side. 12/2017, Bilateral Implants. Maternal grandmother had breast cancer. Maternal aunt had breast cancer, age 50. Risk Values: Carmelita 5 year model risk: 0.8%. NCI Lifetime model risk: 6.8%. Prior Study Comparison: 08/23/2021 Bilateral Screening Mammogram, [facility]. 09/23/2022 Bilateral MG 3D screen mammo imp/cad., [facility]. 09/24/2023 Bilateral MG 3D screen mammo imp/cad., [facility]. Tissue Density: There are scattered areas of fibroglandular density. Findings: Analyzed By CAD. Left breast biopsy clip. Bilateral breast implants appear intact. Right breast: There is no suspicious group of microcalcifications or new suspicious mass. Left breast: There is no suspicious group of microcalcifications or new suspicious mass. Overall Assessment: Benign, BI-RAD 2 Management: Screening Mammogram of both breasts in [address] [facility] will attempt to contact patient to return for supplemental views and ultrasound if indicated. Patient should continue monthly self-breast exams. A clinical breast exam by your physician is recommended on an annual basis. This exam should not preclude additional follow-up of suspicious palpable abnormalities. Note on Carmelita scores and lifetime risk: 1. A Carmelita score greater than 3% is considered moderate risk. If this is the case, consider specialist referral to assess eligibility for a risk reducing agent. 2. If overall lifetime risk for the development of breast cancer is 20% or higher, the patient may qualify for future screening with alternating mammogram and breast MRI. [facility], , 09/30/2024 1:01 PM. Electronically signed and approved by: Carlo Cast DO
== END | disposition home or self-care (01) ==
LOC: RADMAMWWP 07:46
PROVIDERS: ATTEND Obstetrics & Gynecology
DX: Z12.31 Encounter for screening mammogram for malignant neoplasm of breast (principal); R92.323 Mammographic fibroglandular density, bilateral breasts; Z78.0 Asymptomatic menopausal state; Z80.3 Family history of malignant neoplasm of breast
CPT/HCPCS: 77063; 77067